=== PATIENT | female | born 1990 | race Hispanic/Latino ===

== ENCOUNTER 2018-08-13 12:35 | Emergency (ER) | payer OTHER ==
--- NOTE | 2018-08-13 14:37 | ER ---
Nurse's Notes [facility] Name: Sandra Hernandez Age: 27 yrs Sex: Female : 1990 Arrival Date: 08/13/2018 Time: 12:42 Bed 24 Private MD: None, None Diagnosis: Acute upper respiratory infection, unspecified Presentation: 08/13 13:06 Presenting complaint: Patient states: coughing, congestion, headache, fatigue, sore aa5 throat, and decreased appetite x 2 days ago. Transition of care: patient was not received from another setting of care. Onset of symptoms was August 2018. Risk Assessment: Do you want to hurt yourself or someone else? Patient reports no desire to harm self or others. Initial Sepsis Screen: Does the patient meet any 2 criteria? No. Patient's initial sepsis screen is negative. Does the patient have a suspected source of infection? No. Patient's initial sepsis screen is negative. Care prior to arrival: None. 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 - Social history:: Smoking status: Patient/guardian denies using tobacco. - Ebola Screening: : No symptoms or risks identified at this time. Screenin:40 Abuse screen: Denies threats or abuse. Nutritional screening: No deficits noted. tl3 Tuberculosis screening: No symptoms or risk factors identified. Fall Risk None identified. Assessment: 13:40 General: Appears uncomfortable, slender, well groomed, well developed, well nourished, tl3 Behavior is calm, cooperative, appropriate for age. Neuro: Level of Consciousness is awake, alert, obeys commands, Oriented to person, place, time, situation, Appropriate for age. 13:40 General: Reports fatigue for 1-2 days, feeling chilled and with mild headache. Pain: tl3 Complains of pain in generalized body aches. Cardiovascular: Patient's skin is warm and dry. Respiratory: Reports cough that is persistent Airway is patent Respiratory effort is even, unlabored, Respiratory pattern is regular, symmetrical. GI: No signs and/or symptoms were reported involving the gastrointestinal system. : No signs and/or symptoms were reported regarding the genitourinary system. EENT: No signs and/or symptoms were reported regarding the EENT system. Derm: No signs and/or symptoms reported regarding the dermatologic system. Musculoskeletal: Reports generalized muscle aches. 14:13 Reassessment: No changes from previously documented assessment. Patient and/or family tl3 updated on plan of care and expected duration. Pain level reassessed. Patient is alert, oriented x 3, equal unlabored respirations, skin warm/dry/pink. pt has no needs at this time, awaiting lab results. 14:55 Reassessment: No changes from previously documented assessment. Patient and/or family tl3 updated on plan of care and expected duration. Pain level reassessed. Patient is alert, oriented x 3, equal unlabored respirations, skin warm/dry/pink. Vital Signs: 13:07 BP 114 / 73; Pulse 67; Resp 18 S; Temp 98.6(TE); Pulse Ox 100% on R/A; Weight 79.38 kg aa5 (R); Height 5 ft. 5 in. (165.10 cm) (R); Pain 5/10; 13:40 BP 117 / 66; Pulse 62; Resp 18; Pulse Ox 99% on R/A; tl3 14:13 BP 115 / 72; Pulse 66; Resp 18; Pulse Ox 100% on R/A; tl3 13:07 Body Mass Index 29.12 (79.38 kg, 165.10 cm) aa5 ED Course: 12:42 Patient arrived in ED. mr 12:42 None, None is Private Physician. mr 13:06 Arm band placed on. aa5 13:07 Sofie Llanos FNP-C is [facility]. kb 13:07 Rick Dudley MD is Attending Physician. kb 13:07 Triage completed. aa5 13:35 Flu and/or RSV swab sent to lab. Strep swab sent to lab. jp3 13:39 Sarah Garcia, CAREY is Primary Nurse. tl3 13:40 Patient has correct armband on for positive identification. Bed in low position. Call tl3 light in reach. Side rails up X 1. Adult w/ patient. Pulse ox on. NIBP on. 13:40 Door closed. Warm blanket given. tl3 13:41 Strep Sent. jp3 13:41 Flu Sent. jp3 14:55 No provider procedures requiring assistance completed. Patient did not have IV access tl3 during this emergency room visit. Administered Medications: No medications were administered Outcome: 14:37 Discharge ordered by MD. irby 14:55 Discharged to home ambulatory. tl3 14:55 Condition: good 14:55 Discharge instructions given to patient, family, Instructed on discharge instructions, follow up and referral plans. stressed good handwashing, fluid intake and fever control as needed 15:04 Patient left the ED. tl3 Signatures: Sofie Llanos, PHP WEB DEVELOPER-C PHP WEB DEVELOPER-Ludivina Thompson mr Betty Geiger, RN RN aa5 Sarah Garcia, CAREY RN tl3 Harjinder Shelton jp3
--- NOTE | 2018-08-13 14:38 | EDPHYS ---
Physician Documentation [facility] Name: Sandra Hernandez Age: 27 yrs Sex: Female : 1990 Arrival Date: 08/13/2018 Time: 12:42 Bed 24 Private MD: None, None ED Physician Rick Dudley HPI: 08/13 13:40 This 27 yrs old Female presents to ER via Ambulatory with complaints of Flu kb Symptoms. 13:41 The patient or guardian reports cough, that is intermittent, described as moderate, kb with no sputum, flu symptoms, myalgias. Onset: The symptoms/episode began/occurred 2 day(s) ago. Severity of symptoms: At their worst the symptoms were mild, moderate, in the emergency department the symptoms are unchanged. Modifying factors: The symptoms are alleviated by nothing, the symptoms are aggravated by nothing. Associated signs and symptoms: Pertinent positives: fever, rhinorrhea, sore throat, Pertinent negatives: chest pain, diarrhea, ear ache, nausea, vomiting. The patient has not experienced similar symptoms in the past. The patient has not recently seen a physician. Pt reports cough, congestion, sore throat, fatigue and headache for 2 days. . 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 - Social history:: Smoking status: Patient/guardian denies using tobacco. - Ebola Screening: : No symptoms or risks identified at this time. ROS: 13:41 Neck: Negative for injury, pain, and swelling, Cardiovascular: Negative for chest pain, kb palpitations, and edema, Back: Negative for injury and pain, MS/Extremity: Negative for injury and deformity, Skin: Negative for injury, rash, and discoloration. 13:41 Constitutional: Positive for fatigue, malaise, Negative for body aches, chills, fever, poor PO intake, weight loss. 13:41 ENT: Positive for sinus congestion, sore throat. 13:41 Respiratory: Positive for cough, Negative for dyspnea on exertion, hemoptysis, orthopnea, pleurisy, shortness of breath, sputum production, wheezing. 13:41 Neuro: Positive for headache, Negative for altered mental status, dizziness, gait disturbance, hearing loss, loss of consciousness, numbness, seizure activity, speech changes, syncope, near syncope, tingling, tinnitus, tremor, visual changes, weakness. Exam: 13:48 Constitutional: This is a well developed, well nourished patient who is awake, alert, kb and in no acute distress. Head/Face: Normocephalic, atraumatic. ENT: Nares patent. No nasal discharge, no septal abnormalities noted. Tympanic membranes are normal and external auditory canals are clear. Oropharynx with no redness, swelling, or masses, exudates, or evidence of obstruction, uvula midline. Mucous membranes moist. Neck: Trachea midline, no thyromegaly or masses palpated, and no cervical lymphadenopathy. Supple, full range of motion without nuchal rigidity, or vertebral point tenderness. No Meningismus. Chest/axilla: Normal chest wall appearance and motion. Nontender with no deformity. No lesions are appreciated. Cardiovascular: Regular rate and rhythm with a normal S1 and S2. No gallops, murmurs, or rubs. Normal PMI, no JVD. No pulse deficits. Respiratory: Lungs have equal breath sounds bilaterally, clear to auscultation and percussion. No rales, rhonchi or wheezes noted. No increased work of breathing, no retractions or nasal flaring. Abdomen/GI: Soft, non-tender, with normal bowel sounds. No distension or tympany. No guarding or rebound. No evidence of tenderness throughout. Back: No spinal tenderness. No costovertebral tenderness. Full range of motion. Skin: Warm, dry with normal turgor. Normal color with no rashes, no lesions, and no evidence of cellulitis. MS/ Extremity: Pulses equal, no cyanosis. Neurovascular intact. Full, normal range of motion. Neuro: Awake and alert, GCS 15, oriented to person, place, time, and situation. Cranial nerves II-XII grossly intact. Motor strength 5/5 in all extremities. Sensory grossly intact. Cerebellar exam normal. Normal gait. Vital Signs: 13:07 BP 114 / 73; Pulse 67; Resp 18 S; Temp 98.6(TE); Pulse Ox 100% on R/A; Weight 79.38 kg aa5 (R); Height 5 ft. 5 in. (165.10 cm) (R); Pain 5/10; 13:40 BP 117 / 66; Pulse 62; Resp 18; Pulse Ox 99% on R/A; tl3 14:13 BP 115 / 72; Pulse 66; Resp 18; Pulse Ox 100% on R/A; tl3 13:07 Body Mass Index 29.12 (79.38 kg, 165.10 cm) aa5 MDM: 13:11 Patient medically screened. kb 13:48 Data reviewed: vital signs, nurses notes. Data interpreted: Pulse oximetry: on room air kb is 100 %. Interpretation: normal. Counseling: I had a detailed discussion with the patient and/or guardian regarding: the historical points, exam findings, and any diagnostic results supporting the discharge/admit diagnosis, lab results, the need for outpatient follow up, a family practitioner, to return to the emergency department if symptoms worsen or persist or if there are any questions or concerns that arise at home. 08/13 13:26 Order name: Flu; Complete Time: 14:36 kb 08/13 13:26 Order name: Strep; Complete Time: 14:22 kb 08/13 14:22 Order name: Throat Culture EDMS Administered Medications: No medications were administered Disposition: 15:49 Co-signature as Attending Physician, Rick Dudley MD. rn Disposition: 08/13/18 14:37 Discharged to Home. Impression: Acute upper respiratory infection, unspecified. - Condition is Stable. - Discharge Instructions: Upper Respiratory Infection, Adult, [id number], Viral Respiratory Infection, [id number]. - Medication Reconciliation Form, Thank You Letter, Antibiotic Education, Prescription Opioid Use form. - Follow up: Emergency Department; When: As needed; Reason: Worsening of condition. Follow up: Private Physician; When: 2 - 3 days; Reason: Recheck today's complaints, Continuance of care, Re-evaluation by your physician. Signatures: Dispatcher [employer] EDMS Sofie Llanos, COUNSELOR SUPERVISOR-C COUNSELOR SUPERVISOR-Rick Jarrett MD MD rn Calderon, Audri, RN RN aa5 Sarah Garcia RN RN tl3 Corrections: (The following items were deleted from the chart) 15:04 14:37 08/13/2018 14:37 Discharged to Home. Impression: Acute upper respiratory tl3 infection, unspecified. Condition is Stable. Forms are Medication Reconciliation Form, Thank You Letter, Antibiotic Education, Prescription Opioid Use. Follow up: Emergency Department; When: As needed; Reason: Worsening of condition. Follow up: Private Physician; When: 2 - 3 days; Reason: Recheck today's complaints, Continuance of care, Re-evaluation by your physician. kb
== END 2018-08-13 15:04 | disposition home or self-care (01) ==
LOC: ER 12:35
DX: J06.9 Acute upper respiratory infection, unspecified (principal)
CPT/HCPCS: 87070; 87081; 87804; 99283